=== PATIENT | male | born 1995 | race Caucasian/White ===

== ENCOUNTER 2018-10-07 19:17 | Inpatient (IN) | payer OTHER ==
--- NOTE | 2018-10-07 19:46 | ED ---
Psychiatric Complaint - HPI Summary HPI Summary: This pt is a 23 y/o male presenting to [facility] for depression and SI. Pt reports he is depressed and has reached a concerning level of self harm "but not to the level of suicidal ideation." He denies any SI plan or HI thoughts/plan. He notes he values his life. Pt reports he can't cope with the feelings he has now. PMHx: tubes in ears, asthma, amarjit stallings, pneumonia, depression, anxiety. Pt does not take medications for depression or anxiety. The last time he saw a psychiatrist was at age 16 and notes his mother "steered him away from medications." He admits to tobacco, marijuana, and Adderall use. Pt notes he stopped drinking alcohol because it was making his depression worse. He states he has been taking more Adderall than usual recently to help him with school work. - History Of Current Complaint Chief Complaint: EDMentalHealth Hx Obtained From: Patient Onset/Duration: Lasting Days, Still Present Timing: Days Severity Currently: Moderate Character: Depressed Aggravating Factor(s): Recent Stress Alleviating Factor(s): Nothing Associated Signs And Symptoms: Positive: Negative Has Suicidal: Reports: Thoughts. Denies: With A Plan Has Homicidal: Denies: Thoughts, With A Plan Recent Stressor(s): school work - Allergies/Home Medications Allergies/Adverse Reactions: Allergies Allergy/AdvReac Type Severity Reaction Status Date / Time cat dander Allergy Itching Verified 10/08/18 04:21 dog dander Allergy Itching Verified 10/08/18 04:21 Home Medications: Home Medications NK [No Home Medications Reported] 10/07/18 [History Confirmed 10/07/18] PMH/Surg Hx/FS Hx/Imm Hx Endocrine/Hematology History: Denies: Hx Diabetes Cardiovascular History: Denies: Hx Hypertension Respiratory History: Reports: Hx Asthma, Hx Pneumonia Psychiatric History: Reports: Hx Anxiety, Hx Depression - Surgical History Surgery Procedure, Year, and Place: Tubes in ears Infectious Disease History: No Infectious Disease History: Denies: Traveled Outside the [place] in Last 30 Days - Family History Known Family History: Negative: Cardiac Disease, Hypertension, Diabetes - Social History Alcohol Use: None Substance Use Type: Reports: Marijuana, Other Substance Use Comment - Amount & Last Used: Adderall Smoking Status (MU): Smoker, Current Status Unknown Review of Systems Negative: Fever, Chills Cardiovascular: Negative Respiratory: Negative Gastrointestinal: Negative Psychological: Other - POS: SI thoughts Positive: Depressed. Negative: Other - NEG: SI plan, HI All Other Systems Reviewed And Are Negative: Yes Physical Exam - Summary Physical Exam Summary: VITAL SIGNS: Reviewed. GENERAL: Patient is a well-developed and nourished male. Patient is not in any acute respiratory distress. HEAD AND FACE: Normocephalic EYES: PERRLA, EOMI x 2. EARS: Hearing grossly intact. MOUTH: Oropharynx within normal limits. NECK: Supple, trachea is midline, no adenopathy, no JVD, no carotid bruit. CHEST: Symmetric, no tenderness at palpation LUNGS: Clear to auscultation bilaterally. No wheezing or crackles. CVS: Regular rate and rhythm, S1 and S2 present, no murmurs or gallops appreciated. ABDOMEN: Soft, non-tender. Bowel sounds are normal. No abdominal abnormal pulsations. EXTREMITIES: Full ROM in all major joints, no edema, no cyanosis or clubbing. NEURO: Alert and oriented x 3. No acute neurological deficits. Speech is normal and follows commands. SKIN: Dry and warm Triage Information Reviewed: Yes Vital Signs On Initial Exam: Initial Vitals Temp Pulse Resp BP Pulse Ox 98.8 F 108 18 166/100 99 10/07/18 19:20 10/07/18 19:20 10/07/18 19:20 10/07/18 19:20 10/07/18 19:20 Vital Signs Reviewed: Yes Diagnostics - Vital Signs Vital Signs Temp Pulse Resp BP Pulse Ox 10/07/18 19:20 98.8 F 108 18 166/100 99 - Laboratory Result Diagrams: 10/07/18 20:01 10/07/18 20:01 Lab Statement: Any lab studies that have been ordered have been reviewed, and results considered in the medical decision making process. Course/Dx - Course Assessment/Plan: Blood work w/o a significant abnormality. He is medically cleared. He is waiting for a MHE. Patient is hemodynamically stable and A+O x 3. Patient will be signed out to Dr. Vail at shift change pending mental health evaluation. - Differential Dx/Clinical Impression Differential Diagnosis/HQI/PQRI: Positive: Anxiety, Depression Provider Diagnosis: Depression Discharge - Sign-Out/Discharge Documenting (check all that apply): Sign-Out Patient Signing out patient TO: Fadi Vail - pending MHE and dispo Patient Received Moderate/Deep Sedation with Procedure: No - Discharge Plan Condition: Stable Disposition: ADMITTED TO [facility] - Billing Disposition and Condition Condition: STABLE - Attestation Statements Document Initiated by Sherryibe: Yes Documenting Scribe: Brissa Mancia Provider For Whom Scribe is Documenting (Include Credential): Nestor Kern MD Scribe Attestation: Brissa Jackson, scribed for Nestor Kern MD on 10/08/18 at 1018. Scribe Documentation Reviewed: Yes Provider Attestation: The documentation as recorded by the Brissa munoz accurately reflects the service I personally performed and the decisions made by , Nestor Kern MD Status of Scribe Document: Viewed
[2018-10-07 20:06] LABS: ABS Basophils 0 10^3/ul (0-0.2); ABS Eosinophils 0.1 10^3/ul (0-0.6); ABS Lymphocytes 2.2 10^3/ul (1.0-4.8); ABS Neutrophils 7.3 10^3/ul (1.5-7.7); ABS Nucleated RBC 0 10^3/ul; Eosinophil % 0.6 %; Hematocrit 47 % (42-52); Hemoglobin 16.2 g/dl (14.0-18.0); Lymphocyte % 20.8 %; Mean Corpuscular HGB Conc 35 g/dl (31-36); Mean Corpuscular Hemoglobin 31 pg (27-31); Mean Corpuscular Volume 89 fL (80-94); Mean Platelet Volume 9.5 fL (7.4-10.4); Nucleated Red Blood Cells % 0; Platelet Count 188 10^3/ul (150-450); Red Blood Count 5.27 10^6/ul (4.00-5.40); Red Cell Distribution Width 12 % (10.5-15); White Blood Count 10.6 10^3/ul (3.5-10.8)
[2018-10-07 20:23] LABS: ALT 15 U/L (7-52); AST 16 U/L (13-39); Albumin 4.8 g/dL (3.2-5.2); Albumin/Globulin Ratio 1.6 (1-3); Alkaline Phosphatase 68 U/L (34-104); Anion Gap 5 mmol/L (2-11); BUN/Creatinine Ratio 14.8 (8-20); Blood Urea Nitrogen 13 mg/dL (6-24); CO2 Carbon Dioxide 30 mmol/L (22-32); Calcium 9.6 mg/dL (8.6-10.3); Chloride 103 mmol/L (101-111); EGFR African American 132.3 (>60); EGFR Non-African American 109.3 (>60); Glucose 106 mg/dL (70-100); Potassium 3.6 mmol/L (3.5-5.0); Sodium 138 mmol/L (135-145); Total Protein 7.8 g/dL (6.4-8.9)
[2018-10-07 21:12] LABS: Acetaminophen < 15 mcg/mL; Alcohol < 10 mg/dL (<10); Salicylate < 2.50 mg/dL (<30)
[2018-10-07 21:25] LABS: Urine Appearance Clear; Urine Bacteria Absent (Absent); Urine Bilirubin Negative (Negative); Urine Blood Negative (Negative); Urine Color Straw; Urine Glucose Negative (Negative); Urine Ketones Negative (Negative); Urine Nitrite Negative (Negative); Urine Protein Negative (Negative); Urine Red Blood Cell Absent (Absent); Urine Specific Gravity 1.003 (1.010-1.030); Urine Squamous Epithelial Cell Present (Absent); Urine Urobilinogen Negative (Negative); Urine White Blood Cell Trace(0-5/hpf) (Absent)
[2018-10-07 21:26] LABS: TSH (Thyroid Stimulating Horm) 2.33 mcIU/mL (0.34-5.60)
[2018-10-07 21:32] LABS: Barbiturates Urine Screen None Detected (None Detect); Benzodiazepine Urine Screen None Detected (None Detect); Urine Cannabinoids Screen Presumptive Positive (None Detect)
--- NOTE | 2018-10-07 22:13 | ED ---
Progress - Progress Note Progress Note: Pt is a signout from Dr. Kern pending MHE. Course/Dx - Course Course Of Treatment: Pt is a signout from Dr. Kern pending MHE. Per Dr. Banuelos , the pt will be voluntarily admitted to [facility] with a dx of depression. - Diagnoses Provider Diagnoses: Depression Discharge - Sign-Out/Discharge Documenting (check all that apply): Patient Departure, Receiving Sign-Out Receiving patient FROM: Nestor Kern - Discharge Plan Condition: Stable Disposition: ADMITTED TO [facility] Referrals: [facility] PHYSICIAN REFERRAL [Outside] - Attestation Statements Document Initiated by Scribe: Yes Documenting Scribe: Saskia Bar Provider For Whom Scribe is Documenting (Include Credential): Fadi Vail MD. Scribe Attestation: Saskia Jackson, scribed for Fadi Vail MD. on 10/08/18 at 0004. Status of Scribe Document: Ready
[2018-10-08] MEDS ORDERED: Acetaminophen TAB* 325 MG PO PRN (05:01)
[2018-10-08] MEDS ORDERED: Al Hydrox/Mg Hydrox/Simet LIQ* 30 ML UDC PO PRN (05:01)
[2018-10-08] MEDS: Vitamin THERAPEUTIC TAB PO SCH (07:33)
[2018-10-08] MEDS: Mouth Piece, Nicotine* 1 EACH CARTRIDGE INH SCH ×2 (07:33→19:14)
[2018-10-08] MEDS: Nicotine Inhaler* 10 MG AMP INH PRN ×3 (07:33→21:27)
[2018-10-08 07:35] LABS: HDL Cholesterol 30.8 mg/dL
[2018-10-08] MEDS: Sertraline* 50 MG TAB PO SCH (12:32)
[2018-10-08] MEDS: Benzocaine/Menthol LOZ* 1 LOZENGE MT PRN ×2 (12:32→20:48)
[2018-10-08] MEDS: Nicotine GUM* 2 MG PO PRN ×2 (14:37→19:14)
--- NOTE | 2018-10-08 17:03 | HP ---
HISTORY AND PHYSICAL: DATE OF ADMISSION: 10/07/18 SUPERVISING PSYCHIATRIST: Dr. Jus Batista.* (DICTATED BY MEY AMARO NP) JUSTIFICATION FOR ADMISSION: The patient presented to the emergency department self-referred due to suicidal ideation and thoughts of self-harm. The patient merits hospitalization for immediate safety and stabilization. 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 He reports he came here from [place] because the mental health resources there are not sufficient and that a friend who was here in the past recommended it. The patient endorses poor sleep, overwhelming feelings of urges to self-harm. He endorses depression and anxiety for the past 8 years. The patient reports significant stressors related to academics. He states he is in the midst of a capstone class and an nutrition internship, and concerned about completing requirements. He states that professors have told him this semester that they are concerned about him having a learning disorder. The patient reports onset of self- injurious behavior on thighs and upper arms in 8th grade and continued through 11th grade. He denies self-harm since then. He admits to receiving or buying Adderall from a friend of his. He reports being unable to pursue prescriptive services due to "not having a doctor." In regards to symptoms of depression, the patient reports depressed mood with thoughts of self-harm and suicidal ideation. He endorses being highly self-critical. He reports problems with sleep and denies that that is related to use of Adderall. He reports multiple attempts at receiving help for depression and anxiety in the past years and this led to frustration due to lack of resources. He states that he called his mother from the emergency department and told her that he was coming to the hospital and "getting the help I never got." The patient endorses history of skipping meals and fasting related to body image. He reports certain foods give him anxiety. He states that he was obsessive about calorie counting in middle school. He denies severe restriction or binging and purging. He reports obsessive compulsions when folding his clothes to pack for an overnight stay. He denies other obsessions or compulsions. He denies intrusive thoughts or images. The patient denies periods of melisa. He denies a history of auditory or visual hallucinations. There are no perceptual disturbances noted. SUBSTANCE USE HISTORY: The patient reports a problematic alcohol use as early as high school. He attended outpatient rehab for alcohol use his sophomore year of high school at [facility] on [address] [place]. He states he has periods of significant binge drinking off and on, but is proud to say that he decreased his use to approximately a 6-pack at a time once a week since July. He reports needing to have a drug and alcohol evaluation in his sophomore year of college. He reports a history of experimenting with cocaine and psychedelics. He reports daily marijuana use, primarily in the evening or night to assist with sleep. As stated above, he is using a friend's prescription of Adderall to assist him with schoolwork. He denies prior medications for psychiatric illnesses. TRAUMA/ABUSE HISTORY: The patient denies a history of abuse. He reports his sister was hospitalized in a psychiatric unit when she was in high school. His parents 3-1/2 years ago due to his dad's infidelity in another country. PAST MEDICAL HISTORY: Asthma, Anamaria-Whiting virus, swine flu, pneumonia. PAST SURGICAL HISTORY: Multiple ear tubes placed. MEDICATIONS: He denies current prescribed medications. ALLERGIES: No known drug allergies. Allergic to CAT and DOG DANDER. PRIMARY CARE PROVIDER: Dr. Mckeon on [address]. FAMILY PSYCHIATRIC HISTORY: Maternal grandmother from suicide when his mother was 21 years old. He has an older brother with a history of learning disorder and autism spectrum disorder, a sister with a history of suicidal ideation, and he reports his father drinks alcohol to excess. SOCIAL HISTORY: The patient is the youngest of 3 siblings by parents who approximately 3-1/2 years ago. His sister has 3 children and lives on [address] [place]. His brother is a senior in college. The patient identifies as homosexual and reports consensual and safe sex practices. He denies need for STD testing. He graduated from high school in [place], [place]. He is a senior at [employer], double majoring in human development and communication and social interactions. He denies a history of legal consequences. He reports hoping to pursue a graduate program in marriage and family therapy. He denies history. REVIEW OF SYSTEMS: Constitutional: Negative. No fevers, chills, or fatigue. ENT: Positive for sore throat. Cardiovascular: Negative. Denies chest pain or palpitations. Respiratory: Negative. Denies shortness of breath or cough. Genitourinary: Negative. Musculoskeletal: Negative. Neurological: Negative. PHYSICAL EXAMINATION VITAL SIGNS: Height 5 feet 11 inches, weight 200 pounds. T 98.5, P 82, respiration rate 16, O2 saturation 100%, BP 151/75. The patient declines need for physical exam. He was examined in the emergency department. For further data, please see ED provider report. LABORATORY DATA: CBC within normal limits. Chemistry within normal limits. Hemoglobin A1c normal at 4.8. Lipid profile normal. TSH normal at 2.33. Urinalysis: Positive leukocyte esterase and squamous epithelial cells. Toxicology was negative for salicylates, acetaminophen, or alcohol. Urine drug screen positive for cannabinoids. MENTAL STATUS EXAM: The patient is a 23-year-old white male, who appears stated age. He is sleeping in bed upon approach, easy to arouse. He is alert and oriented x3. He is cooperative and answers questions fully. He appears to be an adequate historian. Eye contact is good. Speech is soft and articulate with normal inflection. Mood is euthymic with bright range of affect. No abnormal psychomotor activity noted. Thought process is circumstantial, logical , and coherent. Thought content is positive for suicidal ideation and urges to self- harm. He denies HI or . He denies auditory or visual hallucinations. There are no perceptual disturbances noted. Insight and judgment are fair. He appears to have an average intellect by virtue of his academic achievements. DIAGNOSES: 1. Substance-induced mood disorder. 2. Alcohol use disorder. 3. Cannabis use disorder. 4. Stimulant use disorder. ASSESSMENT: Mitchell is a 23-year-old male, college senior from [employer], who presented self-referred at the recommendation of a friend who has been hospitalized here before. The patient reports increased depression and anxiety and difficulty obtaining resources to treat these. He has a history of binge drinking disorder and reports current use is not problematic. He smokes marijuana daily and has been utilizing stimulant unprescribed to him. PLAN: The patient is admitted to adult behavioral services unit on voluntary status. His code status is full. He is placed on safety check every 15 minutes. He is encouraged to participate in supportive milieu, psychoeducational groups, and individual sessions with staff. We will obtain an MMPI for diagnostic clarification. The patient gave consent to trial an SSRI and will be started on sertraline 50 mg daily. He reports his mother and sister are on their way; therefore, they will be involved with discharge planning per his consent. Estimated length of stay is 3 to 5 days. Discharge planning will include referrals to outpatient mental health and he will be offered referrals for substance use treatment. MEY AMARO NP [id number]/[facility] #: [id number] MOHAMUD
[2018-10-09] MEDS: Vitamin THERAPEUTIC TAB PO SCH (09:58)
[2018-10-09] MEDS: Sertraline* 50 MG TAB PO SCH (09:58)
[2018-10-09] MEDS: Benzocaine/Menthol LOZ* 1 LOZENGE MT PRN (09:59)
[2018-10-09] MEDS: Nicotine GUM* 2 MG PO PRN ×4 (10:12→21:53)
[2018-10-09] MEDS: Nicotine Inhaler* 10 MG AMP INH PRN ×5 (10:12→21:52)
--- NOTE | 2018-10-09 14:18 | PN ---
Subjective - Subjective Date of Service: 10/09/18 Service Type: 06957 Hosp care 15 min low complexity Subjective: Patient denies SI, urges for self harm or passive wish. He reports poor sleep last night due to frequent waking. Foreclosure Specialist discusses substance induced mood d/o and personality d/o vulnerabilities per MMPI results. He states understanding of the above due to educational major. Foreclosure Specialist encourages patient that refraining substances could markedly improve prognosis. Objective - Appearance Appearance: Well Developed/Nourished Dysmorphic Features: No Hygiene: Normal Grooming: Well Kept - Behavior Psychomotor Activities: Normal Exhibits Abnormal Movement: No - Attitude and Relatedness Attitude and Relatedness: Cooperative Eye Contact: Good - Speech Quality: Unpressured Latencies: Normal Quantity: Appropriate - Mood Patient's Decription of Mood: "Okay" - Affect Observed Affect: Good Affect Consistent with: Euthymia - Thought Process Patient's Thought Process: Coherent, Goal Directed Thought Content: No Passive Wish, No Suicidal Planning, No Homicidal Ideation, No Paranoid Ideation - Sensorium Experiencing Hallucinations: No, Sensorium is Clear Type of Hallucinations: Visual: No, Auditory: No, Command: No - Level of Consciousness Level of Consciousness: Alert Orientation: Yes Intact, Yes Orientated to Time, Yes Orientated to Place, Yes Orientated to Person - Impulse Control Impulse Control: Intact - Insight and Judgement Insight and Judgement: Fair - Group Participation Particating in Group Activities: Yes Group Participation Comments: partial - Medication Management Medication Management Adherence: Yes Assessment - Assessment Merits Inpatient Hospitalization: For Immediate Safety, For Stabilization, For Discharge Planning Inpatient DSM-V Dx: F10.14 Clinical Impression: 23yo wm, domiciled, senior in college at [employer] who presented to ED via car due to suicidal ideation. He endorses frequent substance use and stressors r/t academic obligations. He merits hospitalization for immediate safety and stabilization. Will be recommended to partake in substance use treatment after psychiatric stabilization. Plan - Plan Treatment Plan: Name: DANIAL LASSITER Birthdate: 1995 [id number] continue acute intensive psychiatric treatment. may decrease to q30min obs and allow computer use per RN discretion. continue sertraline 50mg daily. discharge planning to include family and outpatient referrals. Continued Medication Management: Start Medication Medications: Current Medications Acetaminophen (Tylenol Tab*) 650 mg PO Q4H PRN PRN Reason: PAIN or TEMP > 101 F Al Hydrox/Mg Hydrox/Simethicone (Maalox Plus*) 30 ml PO Q4H PRN PRN Reason: INDIGESTION Device (Nicotine Mouth Piece*) 1 each INH .[facility] Last Admin: 10/08/18 19:14 Dose: 1 each Multivitamins (Theragran Tab*) 1 tab PO DAILY [facility] Last Admin: 10/09/18 09:58 Dose: 1 tab Nicotine (Nicotine Inhaler*) 10 mg INH Q2H PRN PRN Reason: CRAVING Last Admin: 10/09/18 13:36 Dose: 10 mg Nicotine Polacrilex (Nicotine Gum*) 2 mg PO Q2H PRN PRN Reason: CRAVING Last Admin: 10/09/18 13:36 Dose: 2 mg Sertraline HCl (Zoloft*) 50 mg PO DAILY [facility] Last Admin: 10/09/18 09:58 Dose: 50 mg Throat Lozenges (Chloraseptic Billie*) 1 billie MT Q2HR PRN PRN Reason: Sore Throat Last Admin: 10/09/18 09:59 Dose: 1 billie - Discharge Plan Discharge Plan: Outpatient Follow Up Outpatient Program: [facility]
[2018-10-10] MEDS: Sertraline* 50 MG TAB PO SCH (08:26)
[2018-10-10] MEDS: Vitamin THERAPEUTIC TAB PO SCH (08:26)
[2018-10-10 08:31] VITALS: BP 135/77
[2018-10-10] MEDS: Nicotine Inhaler* 10 MG AMP INH PRN ×2 (09:10→12:47)
[2018-10-10] MEDS: Nicotine GUM* 2 MG PO PRN (09:10)
--- NOTE | 2018-10-13 15:00 | CONS ---
PSYCHOLOGICAL REPORT: DATE OF CONSULT: 10/09/18 PROCEDURE CODE: [id number] REASON FOR REFERRAL: Mitchell was referred for personality testing secondary to concerns regarding ch aracterological vulnerabilities consistent with borderline and/or histrionic personality features. TEST ADMINISTERED: Mitchell completed the [place] multiphasic personality inventory - 2 (MMPI - 2), and was given feedback in individual conversation. RELEVANT HISTORY: Mitchell is a 23-year-old male who is currently a senior at [employer] major in both communications and human development. He was self-referred to our emergency departm ent after experiencing recurrent difficulties with suicidal ideation. Mitchell comes from [facility] use he has a friend who apparently was treated here and spoke highly of his experience at the unit. Mitchell endorses remote historical difficulties with self-injury, having self-mutilated on his legs a nd arms between 8th and 11th grade. He describes recurrent difficulties with both anxiety and depres jania since that period of time, but that he was able to stop engaging in self injury after the 11 g rade. He endorses some problematic alcohol use, describing binge drinking occasionally and also smok es marijuana daily. Current stressors seem to revolve primarily around completing his course work an d in dealing with continuing difficulties of poor adjustment to [facility]. Mitchell describes doing well socially, but describes his impressions of [place] particularly in a negativistic fashion. He describes looking forward to completing his time in [place] and returning to [place] [facility]. Mitchell initially presented with a rather flat and sullen affect that was largely invariable with dis cussion. This presentation moderated significantly prior to discharge where he was euthymic in mood and spontaneous speech. He was much better related prior to discharge than upon admission and was en gaging in clinical discussion in a more effective fashion. He expressed appreciation and gratitude f or efforts made by staff and endorsed having had a positive experience on the unit. His mother and s ister drove up from [place] to pick him up and drive him back to [place]. They impressed as quite supportive and invested in his well being. TEST RESULTS: Although Mitchell provides a valid protocol on this administration of the MMPI-2, he thacker s a very significantly elevated neurotic triad, which is reflected in especially high score on the co nversion hysteria scale (T=100). He elevates hypochondriasis and depression scale between scores of 85 and 80 with concomitant elevations occurring in rather minor way on all of the clinical scales exc ept social introversion. Discussion with Mitchell ruled out any symptoms associated with hypomanic co ndition as he also elevates this scale, including the psychopathic deviate scale as well. Overall, queenie is profile is felt to endorse concerns related to borderline personality function and that he has per haps over endorsed symptomatology in somewhat exaggerated fashion. Regardless persons who elevate ps ychopathic deviate and the hypomania scale often are described as being impulsive in nature and perha ps at times reckless. However, given that he is also a senior in college, these two scales may be re flective of autonomy, independence. IMPRESSIONS AND RECOMMENDATIONS: Mitchell's rather quick recovery are positive prognostic features in regards to severity of depression and lethality and that his quick recovery supports concerns regard ing borderline personality proclivities. Mitchell was somewhat taken aback in discussion of this, but could benefit further from a clarification of what symptoms pertain to him specifically. Another pos itive prognostic indicator was his ability to [id number] from self-injury in prior years. Kurt lamb impresses as good candidate to benefit from insight oriented psychotherapies which may begin to a ddress difficulties in self-perception as historically he endorsed difficulties with body image. Damaris gnostic impression supports substance-induced mood disorder consistent with depression, as well as zoran rderline personality features. [id number]/[facility] #: [id number]
--- NOTE | 2018-10-13 23:21 | DS ---
CC: DULCE Harvey; Dr. Mckeon in [place], [place] DISCHARGE SUMMARY: DATE OF ADMISSION: 10/07/18 DATE OF DISCHARGE: 10/10/18 SUPERVISING PSYCHIATRIST: Dr. Jus Batista. DISCHARGE DIAGNOSES: 1. Substance-induced mood disorder. 2. Alcohol use disorder. 3. Cannabis use disorder. 4. Tobacco use disorder. 5. Rule out major depressive disorder. CONDITION AT TIME OF DISCHARGE: Improved. The patient denies suicidal ideation or urges for self-thacker rm. He reports desire to be connected to outpatient services and to be discharged from the hospital today. He denies untoward effects with starting sertraline at 50 mg daily. We discussed box warning and means restrictions. The patient was notified of recommendation for drug and alcohol evaluation. When discussing diagnoses and recommendation, the patient agreed to do so in front of his mother an d sister who were present during this in hours. The patient is dismissive of diagnosis involving sub stance use. He expresses irritation and perceived lack of resources. The patient was increasingly i rritable during discussion and went so far as to call keno writer as "pretentious." We discussed discharg e planning including recommendation to return to [employer] for the remainder of h is school semester. He states intention to return to home in [place] after graduation. He is en couraged to coordinate with his primary care provider for ongoing medications. The patient expresses desire to be referred to psychiatrist. He and his family members were notified. They were not fami liar with private practitioners in his area and is encouraged to ask [facility] for such recommendat ion. The patient was offered to remain on the mental health unit in order to gain more information a bout outpatient services where he lives. He declined this offer. The patient met with social work a nd agreed to coordinate with [facility]. MENTAL STATUS EXAM: Mitchell is a 23-year-old white male who appears stated age. He is alert and orie nted x3. He is well-groomed and wearing his own clothing. He participates in interview. Eye contac t is good. Speech is soft and articulate with normal reflection. Mood is euthymic with full range o f affect. No abnormal psychomotor activity noted. Thought process is circumstantial, logical, and c oherent. Thought content is negative for suicidal ideation and urges to self- harm. He denies HI or . He denies auditory or visual hallucinations. There are no perceptual disturbances noted. Insi ght and judgment are fair. Fund of knowledge is adequate. INSTRUCTIONS GIVEN TO THE PATIENT: A. Medications: Sertraline 50 mg daily. B. Diet is regular. C. Activity as tolerated. Tobacco cessation was declined by the patient. D. Followup care: The patient will follow up with [facility] and is ref erred to his primary care provider, Dr. Mckeon in [place], [place]. E. Substance use followup: The patient declined offer of substance use treatment. It is recommended that he have a substance use evaluation through [facility]. 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 He reports he came here from [place] because the mental health resources there are no t sufficient and that a friend who was here in the past recommended this. The patient endorses poor sleep, overwhelming feelings of urges to self-harm. He endorses depression and anxiety for the past 8 years. The patient reports significant stressors related to academics. 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 He states that professors have told him this semester that they are concerned about him having a learning diso rder. The patient reports onset of self-injurious behavior on thighs and upper arms in 8th grade and continued through 11th grade. He denies self-harm since then. He admits to receiving or buying Adde rall from a friend of his. He reports being unable to pursue prescriptive services due to "not havin g a doctor." In regards to symptoms of depression, the patient reports depressed mood with thoughts of self- harm and suicidal ideation. He endorses being highly self-critical. He reports problem wit h sleep and denies that this is related to use of Adderall. He reports multiple attempts at receivin g help for depression and anxiety in the past years and this led to frustration due to lack of resour juan antonio. He states that he called his mother from the emergency department and told her that he was comi ng to the hospital and "getting the help I never got." The patient endorses history of skipping meal s and fasting related to body image. He reports certain foods give him anxiety. He states that he w as obsessive about calorie counting in middle school. He denies severe restriction or binging or pur ging. He reports obsessive compulsions when folding his clothes to pack for an overnight stay. He d enies other obsessions or compulsions. He denies intrusive thoughts or images. He denies periods of melisa. He denies a history of auditory or visual hallucinations. SUBSTANCE USE HISTORY: The patient reports a problematic use of alcohol as early as high school. He attended outpatient rehab for alcohol use in his sophomore year of high school at [facility]. He states he has periods of significant binge drinking off and on, but is proud to say that he decreased his use to approximately a 6-pack at a time since July. He report s needing to have a drug and alcohol evaluation in his sophomore year of college. He reports a histo ry of experimenting with cocaine and psychedelics. He reports daily marijuana use, primarily in the evening or night to assist with sleep. As stated above, he has been using a friend's prescription of Adderall to assist him with schoolwork. He denies prior medications for psychiatric illnesses. HOSPITAL COURSE: Part A. Reason for admission: The patient presented to emergency department self- referred due to suicidal ideation and thoughts of self-harm. Please see H and P. Part B: Psychiatric treatment rendered: The patient was admitted to Adult Behavioral Services Unit on voluntary status. Code status is full. He was placed on safety checks every 15 minutes and encou raged to participate in supportive milieu, psychoeducational groups, and individual sessions with sta ff. The patient gave consent to trial an SSRI and started on sertraline 50 mg daily. We have obtain ed an MMPI for diagnostic clarification. Roughly this endorsed access to vulnerabilities along with low readings on depression and anxiety. Please see full report by psychologist, Dr. Adi Mejia. Th e patient was notified of the above and was dismissive of the results. He stated frustration that th is is "all chucked up to substance use." We also discussed characteristics of personality disorders that are similar to developmental stage of adolescence. The patient was offered access to computer f or school work obligations as well as coordinating with his professors but declined this offer. 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 The patient would likely benefit from private practic e providers; however, we are not knowledgeable of these in the [place] area or his hometown [facility]. He is encouraged to work with [facility] staff, try to identify local options. MEY AMARO, TRAILER BODY ASSEMBLER [id number]/CPS #: [id number]
== END 2018-10-10 13:45 | disposition home or self-care (01) | DRG 897 ==
LOC: ED 19:17 → BSU 23:50
PROVIDERS: ADMIT Psychiatry & Neurology Psychiatry; ATTEND Psychiatry & Neurology Psychiatry
DX: F10.14 Alcohol abuse with alcohol-induced mood disorder (principal); R45.851 Suicidal ideations; J45.909 Unspecified asthma, uncomplicated; F12.90 Cannabis use, unspecified, uncomplicated; Y90.0 Blood alcohol level of less than 20 mg/100 ml; Z81.8 Family history of other mental and behavioral disorders; Z81.1 Family history of alcohol abuse and dependence; Z84.89 Family history of other specified conditions
CPT/HCPCS: 36415; 80053; 80061; 80307; 80320; 80329; 81003; 81015; 83036; 84443; 85025; 87086; 87088; 99222; 99231; 99238; 99284; A9270-GY; G0480